=== PATIENT | male | born 1935 | race Caucasian/White ===

== ENCOUNTER → 2016-03-22 | Outpatient (CLI) | payer OTHER | LOC: BHFA 09:15 | PROVIDERS: ATTEND Internal Medicine Cardiovascular Disease | DX: I25.10 Atherosclerotic heart disease of native coronary artery without angina pectoris (principal); E78.2 Mixed hyperlipidemia; I49.3 Ventricular premature depolarization; I71.2 Thoracic aortic aneurysm, without rupture; I45.9 Conduction disorder, unspecified ==

== ENCOUNTER → 2016-03-28 | Outpatient (CLI) | payer OTHER | LOC: BHFA 14:00 | PROVIDERS: ATTEND Internal Medicine Cardiovascular Disease | DX: I25.10 Atherosclerotic heart disease of native coronary artery without angina pectoris (principal) ==

== ENCOUNTER → 2016-04-02 | Emergency (ER) | payer OTHER ==
[~2016-04-02] MED LIST: ACETAMINOPHEN 500 MG TAB ONE; ACETAMINOPHEN 500 MG TAB PO ONE; DEXAMETHASONE 10 MG/ML VIAL IVP ONE; HYDROmorphONE/DILAUDID 1 MG/ML SYR ONE; IBUPROFEN 200 MG TAB PO ONE; IBUPROFEN 600 MG TAB PO ONE; ONDANSETRON 4 MG/2 ML VIAL ONE
--- NOTE | 2016-04-02 06:27 | EDPHY ---
H & P Stated Complaint: sore throat, janis ear pain Time Seen by Provider: 04/02/16 05:41 HPI/ROS: HPI The patient presents with sore throat for the last 1d, he awoke with it this morning and it had become more severe, so he is here for evaluation. Throat pain is achy, constant, worse with swallowing, moderate in severity. It is associated with a fullness in his ears bilaterally. He does not have neck pain or stiffness. Denies any known sick contacts. Had a flu shot this year. REVIEW OF SYSTEMS Constitutional: No fever, no chills. Eyes: No discharge. ENT: No sore throat. Cardiovascular: No chest pain, no palpitations. Respiratory: No cough, no shortness of breath. Gastrointestinal: No abdominal pain, no vomiting. Genitourinary: No hematuria. Musculoskeletal: No back pain. Skin: No rashes. Neurological: No headache. PMHx: HTN, GERD PHYSICAL General Appearance: [Alert, no distress] Eyes: [Pupils equal and round no pallor or injection] ENT, Mouth: [Mucous membranes moist, pos pharynx is erythematous without exudate , no edema] Respiratory: [There are no retractions, lungs are clear to auscultation] Cardiovascular: [ Regular rate and rhythm ] Neurological: [ A&O, moves all extremities] Skin: [ Warm and dry, no rashes] Musculoskeletal: [Neck is supple with no lymphadenopathy ] Extremities: [symmetrical, full range of motion ] Psychiatric: [ Patient is oriented X 3, there is no agitation ] Source: Patient Exam Limitations: No limitations - Medical/Surgical History Hx Asthma: No Hx Chronic Respiratory Disease: No Hx Diabetes: No Hx Cardiac Disease: Yes Hx Renal Disease: No Hx Cirrhosis: No Hx Alcoholism: No Hx HIV/AIDS: No Hx Splenectomy or Spleen Trauma: No Other PMH: colon resection 2010 - Social History Smoking Status: Never smoked Drug Use: None Constitutional: Initial Vital Signs Temperature (C) 37.9 C 04/02/16 05:33 Heart Rate 70 04/02/16 05:33 Respiratory Rate 20 04/02/16 05:33 Blood Pressure 150/74 H 04/02/16 05:33 O2 Sat (%) 95 04/02/16 05:33 O2 Delivery Mode Room Air Allergies/Adverse Reactions: No Known Allergies Allergy (Unverified 04/02/16 05:33) Home Medications: Medication Instructions Recorded Gluc Sutherland/Chondro Sutherland A/Vit C/Mn 1 each PO DAILY 05/02/10 [Glucosamine 1,500 Complex Cp] OMEPRAZOLE 20 mg PO DAILY 05/02/10 RAMIPRIL 10 mg PO DAILY 05/02/10 SIMVASTATIN [Zocor] 40 mg PO DAILY 05/02/10 "Stool Softner" 07/07/10 Avadart 07/07/10 Medical Decision Making Differential Diagnosis: This is a relatively healthy 80 yo M who presents with 1 d history of sore throat. Here, he has a low grade temp, pos pharynx erythema, otherwise normal exam. Differential diagnosis includes strep pharyngitis, viral pharyngitis, less likely influenza given no cough or rhinorrhea. I doubt deep space neck infection given no neck pain with good range of motion of neck. Rapid strep was performed and was negative. I feel he likely has a viral pharyngitis and will treat him with tylenol, ibuprofen and decadron. - Data Points Medications Given: Discontinued Medications Acetaminophen (Tylenol) 1,000 mg PO EDNOW ONE Stop: 04/02/16 05:47 Last Admin: 04/02/16 05:58 Dose: 1,000 mg Dexamethasone (Decadron Injection) 10 mg IVP EDNOW ONE Stop: 04/02/16 05:51 Last Admin: 04/02/16 05:58 Dose: 10 mg Ibuprofen (Motrin) 800 mg PO EDNOW ONE Stop: 04/02/16 05:47 Last Admin: 04/02/16 05:58 Dose: 800 mg Departure - Departure Disposition: Home, Routine, Self-Care Clinical Impression: Pharyngitis Condition: Good Instructions: Pharyngitis (ED) Additional Instructions: Please make sure to drink plenty of fluids. You can take acetaminophen 650 mg and ibuprofen 400 mg every 6 hours as needed for pain or fever. Please return to the emergency room if you are worse in any way. Referrals: Tavo Mace MD [Primary Care Provider] - As per Instructions
[2016-04-02 06:45] VITALS: BP 108/66; PULSE 61; RESP 15; TEMP 98.3; O2SAT 91
== END | disposition home or self-care (01) ==
DX: J02.9 Acute pharyngitis, unspecified (principal); I10 Essential (primary) hypertension
CPT/HCPCS: 99283; J1170; J2405

== ENCOUNTER 2016-04-06 16:29 | Emergency (ER) | payer OTHER ==
[2016-04-06] MEDS ORDERED: HYDROmorphONE/DILAUDID 1 MG/ML SYR ONE ×3 (16:36→18:03)
--- NOTE | 2016-04-06 16:44 | EDPHY ---
H & P - Medical/Surgical History Hx Asthma: No Hx Chronic Respiratory Disease: No Hx Diabetes: No Hx Cardiac Disease: Yes Hx Renal Disease: No Hx Cirrhosis: No Hx Alcoholism: No Hx HIV/AIDS: No Hx Splenectomy or Spleen Trauma: No Other PMH: colon resection 2010 - Social History Smoking Status: Never smoked Time Seen by Provider: 04/06/16 16:40 Constitutional: Initial Vital Signs Temperature (C) 36.5 C 04/06/16 16:29 Heart Rate 77 04/06/16 16:29 Respiratory Rate 16 04/06/16 16:29 Blood Pressure 109/63 04/06/16 16:29 O2 Sat (%) 99 04/06/16 16:29 O2 Delivery Mode Room Air O2 (L/minute) 2 Allergies/Adverse Reactions: No Known Allergies Allergy (Unverified 04/02/16 05:33) Home Medications: Medication Instructions Recorded Gluc Sutherland/Chondro Sutherland A/Vit C/Mn 1 each PO DAILY 05/02/10 [Glucosamine 1,500 Complex Cp] OMEPRAZOLE 20 mg PO DAILY 05/02/10 RAMIPRIL 10 mg PO DAILY 05/02/10 SIMVASTATIN [Zocor] 40 mg PO DAILY 05/02/10 "Stool Softner" 07/07/10 Avadart 07/07/10 Bystolic 04/06/16 Medical Decision Making Procedures: I was asked by Dr. Jameson Salazar to repair right elbow laceration. Laceration repair. Verbal consent was obtained from the patient. The 2 cm laceration on the right elbow was anesthetized using 1% lidocaine with epinephrine. The wound was irrigated with saline, draped and explored to its base with a gloved finger. No tendon injury was identified. The wound was repaired with 4 0 Ethilon, 5 sutures. The wound repair was simple. The procedure was performed by myself. ( Alyssa Babin) ED Course/Re-evaluation: CHIEF COMPLAINT: Fall, hip pain. HISTORY OF PRESENT ILLNESS: This patient is a 80 year old male arriving by EMS following a fall this afternoon. He tells me that he is unsure why he fell but found himself on the floor, unable to get up due to right hip pain. He also reports a bilateral temporal headache exacerbated when moving his head. He is not on anticoagulants. He denies any significant medical history. REVIEW OF SYSTEMS: A 10 point review of systems was performed and is negative with the exception of the elements mentioned in the history of present illness. PHYSICAL EXAM: HR 77, BP 109/63, O2 Sat 93%, RR 16. Temp noted General Appearance: Alert, well hydrated, appropriate, and non-toxic appearing. Head: Atraumatic without scalp tenderness or obvious injury Eyes: Pupils equal, round, reactive to light and accommodation, EOMI, no trauma , no injection. Ears: Clear bilaterally, no perforation, normal landmarks Nose: Atraumatic, no rhinorrhea, clear. Throat: There is no erythema or exudates, no lesions, normal tonsils, mucus membranes moist. Neck: Supple, 2+ carotid upstroke, nontender, no lymphadenopathy. Respiratory: No retractions, no distress, no wheezes, and no accessory muscle use. Lungs are clear to auscultation bilaterally. Cardiovascular: Regular rate and rhythm, no murmurs, rubs, or gallops. Bilateral carotid, radial, dorsalis pedis, and posterior tibial pulses intact. Good capillary refill all extremities. Gastrointestinal: Abdomen is soft, nontender, non-distended, no masses, no rebound, no guarding, no peritoneal signs. Musculoskeletal: Short, externally rotated right lower extremity. Small elbow laceration. Neurological: Alert, appropriate, and interactive. The patient has normal DTRs and non-focal cranial nerves, motor, sensory, and cerebellar exam. Skin: No rashes, good turgor, no nodules on palpation. Past medical history: Hypertension. Normal heart cath in 2010. Followed by Dr. Naseem Sheikh. Social history: Lives independently. DIAGNOSTICS/PROCEDURES: EKG INTERPRETATION: The 12 lead EKG was interpreted by myself: Sinus rhythm, rate 76; inferior infarct, old; borderline R wave progression in the anterior leads. EKG is unchanged from previous. See hard copy and/or "tracemaster" electronic copy for interpretation. IMAGING: Study: CT of the head Indication: Possible syncope, pain, trauma Results: CT scan of the head was obtained. The results of the study are: non- acute. The study was read by the radiologist, Dr. Josh Cho. I viewed the images myself on the PACS system. Study: CT of the cervical spine Indication: Possible syncope, trauma Results: CT scan of the cervical spine was obtained. The results of the study are: The results of the study are: non-acute. The study was read by the radiologist, Dr. Josh Cho. I viewed the images myself on the PACS system. Study: X-ray of the right hip Indication: Pain, trauma Results: X-ray of the right hip was obtained. 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 The study was read by the radiologist, Dr. Josh Cho. I viewed the images myself on the PACS system. DIFFERENTIAL DIAGNOSIS: The differential diagnosis for the patient's fall included but was not limited to vasovagal syncope, arrhythmia, dehydration, cardiogenic causes, neurogenic causes, and blood loss. The differential diagnosis for the patient's hip pain included but was not limited to MEDICAL DECISION MAKING: This 80 year old male presents to the ED via EMS after falling this afternoon. He does not recall the reason for his fall but does report that he had difficulty getting up from the floor due to right hip pain. He presents with a laceration to his right elbow and indication of potential hip fracture based on the shortening and rotation of his right lower extremity. I will work the patient up for both the fall and the resulting injuries; will proceed with CT of the head and neck, X-ray of the hip, labs, and EKG. Elbow laceration will be repaired by the PA. EKG is unchanged from previous. Labs are unremarkable. CT of the head and neck is non-acute. 1800: X-ray of the hip is significant for a central acetabular fracture. I discussed these findings with the patient. Plan for consultation with the on- call orthopedic surgeon. 180: Consultation with Dr. Chucky Anderson, orthopedist, who recommends transfer to [facility] for pelvic trauma specialist. 181: Consultation with Dr. Crowell, surgeon at [facility], who accepts the transfer. Transport will be arrived via EMS. The patient reports that he has been NPO since this 930 morning. (Jameson Salazar ) - Data Points Laboratory Results: Laboratory Results 04/06/16 16:35 04/06/16 16:35 04/06/16 04/06/16 16:35 15:35 WBC 9.08 10^3/uL (3.80-9.50) RBC 5.06 10^6/uL (4.40-6.38) Hgb 13.5 L g/dL (13.7-17.5) Hct 40.9 % (40.0-51.0) MCV 80.8 L fL (81.5-99.8) MCH 26.7 L pg (27.9-34.1) MCHC 33.0 g/dL (32.4-36.7) RDW 14.0 % (11.5-15.2) Plt Count 180 10^3/uL (150-400) MPV 9.5 fL (8.7-11.7) Neut % (Auto) 81.6 H % (39.3-74.2) Lymph % (Auto) 11.5 L % (15.0-45.0) [place] % (Auto) 4.8 % (4.5-13.0) Eos % (Auto) 0.8 % (0.6-7.6) Baso % (Auto) 0.3 % (0.3-1.7) Nucleat RBC Rel Count 0.0 % (0.0-0.2) Absolute Neuts (auto) 7.41 H 10^3/uL (1.70-6.50) Absolute Lymphs (auto) 1.04 10^3/uL (1.00-3.00) Absolute Monos (auto) 0.44 10^3/uL (0.30-0.80) Absolute Eos (auto) 0.07 10^3/uL (0.03-0.40) Absolute Basos (auto) 0.03 10^3/uL (0.02-0.10) Absolute Nucleated RBC 0.00 10^3/uL (0-0.01) Immature Gran % 1.0 % (0.0-1.1) Immature Gran # 0.09 10^3/uL (0.00-0.10) PT 14.4 SEC (12.0-15.0) INR 1.13 (0.83-1.16) APTT 31.1 SEC (23.0-38.0) Sodium 139 mEq/L (134-144) Potassium 3.9 mEq/L (3.5-5.2) Chloride 107 mEq/L (97-110) Carbon Dioxide 22 mEq/l (22-31) Anion Gap 10 mEq/L (8-16) BUN 17 mg/dL (7-23) Creatinine 1.0 mg/dL (0.7-1.3) Estimated GFR > 60 Glucose 96 mg/dL (70-100) Calcium 8.8 mg/dL (8.5-10.4) Medications Given: Discontinued Medications Hydromorphone HCl (Dilaudid) 0.5 mg IVP EDNOW ONE Stop: 04/06/16 16:49 Last Admin: 04/06/16 17:00 Dose: 0.5 mg Hydromorphone HCl (Dilaudid) 0.5 mg IVP EDNOW ONE Stop: 04/06/16 18:06 Last Admin: 04/06/16 18:05 Dose: 0.5 mg Ondansetron HCl (Zofran) 4 mg IVP EDNOW ONE Stop: 04/06/16 17:01 Last Admin: 04/06/16 17:00 Dose: 4 mg Departure - Departure Disposition: [facility] Clinical Impression: Acetabular fracture Condition: Fair Referrals: NONE *PRIMARY CARE P,. [Primary Care Provider] - As per Instructions Report Scribed for: Jameson Salazar Report Scribed by: Dee Ray Date of Report: 04/06/16 Time of Report: 16:45
[2016-04-06] MEDS ORDERED: HYDROmorphONE/DILAUDID 1 MG/ML SYR IVP ONE ×3 (16:48→19:10)
--- NOTE | 2016-04-06 16:52 | CPEKG ---
Heart Rate: 76 RR Interval: 789 P-R Interval: 212 QRSD Interval: 104 QT Interval: 408 QTC Interval: 459 P [place]: 20 QRS [place]: -69 T Wave [place]: 36 EKG Severity - ABNORMAL ECG - EKG Impression: SINUS RHYTHM EKG Impression: INFERIOR INFARCT, OLD EKG Impression: BORDERLINE R WAVE PROGRESSION, ANTERIOR LEADS Electronically Signed By: Jameson Salazar 06-Apr-2016 23:03:09
[2016-04-06 16:53] LABS: ABSOLUTE IMMATURE GRANULOCYTES 0.09 10^3/uL (0.00-0.10); ADD DIFF? NO; ADD MORPH? NO; ADD SCAN? NO; ATYPICAL LYMPHOCYTE FLAG 20 (0-99); FRAGMENT RBC FLAG 0 (0-99); HEMATOCRIT 40.9 % (40.0-51.0); HEMOGLOBIN 13.5 g/dL (13.7-17.5); LEFT SHIFT FLG 30 (0-99); LIPEMIA HEMOLYSIS FLAG 80 (0-99); MEAN CELL HEMOGLOBIN 26.7 pg (27.9-34.1); MEAN CELL VOLUME 80.8 fL (81.5-99.8); MEAN PLATELET VOLUME 9.5 fL (8.7-11.7); PLATELET CLUMPS FLAG 0 (0-99); PLATELET COUNT 180 10^3/uL (150-400); RED BLOOD CELL COUNT 5.06 10^6/uL (4.40-6.38)
[2016-04-06] MEDS ORDERED: ONDANSETRON 4 MG/2 ML VIAL ONE (16:58)
[2016-04-06] MEDS ORDERED: ONDANSETRON 4 MG/2 ML VIAL IVP ONE (17:00)
[2016-04-06 17:13] LABS: INR 1.13 (0.83-1.16); PROTIME(PATIENT) 14.4 SEC (12.0-15.0)
[2016-04-06 17:13] LABS: ANION GAP 10 mEq/L (8-16); CALCIUM 8.8 mg/dL (8.5-10.4); CARBON DIOXIDE 22 mEq/l (22-31); CHLORIDE 107 mEq/L (97-110); GLOMERULAR FILTRATION RATE > 60; GLUCOSE 96 mg/dL (70-100); POTASSIUM 3.9 mEq/L (3.5-5.2); SODIUM 139 mEq/L (134-144)
[2016-04-06 17:14] LABS: APTT 31.1 SEC (23.0-38.0)
--- NOTE | 2016-04-06 17:41 | CT ---
1. CT Head Without Contrast, 5:06 p.m. History: Trauma, fall. Technique: Noncontrast images through the head. Soft tissue and bone window evaluation is performed. Dose reduction techniques were utilized. Findings: There is age-appropriate moderate cerebral atrophy. There is no evidence for hemorrhage, ma ss lesion, acute infarction, intracranial edema, hydrocephalus or abnormal intracranial parenchymal c alcification. Is atherosclerotic calcification of both distal vertebral and internal carotid arteries . No subarachnoid blood is identified. There is no midline shift. The ambient cistern is patent. Bone window evaluation reveals normally aerated paranasal and mastoid sinuses. There is no evidence of fr acture or pneumocephalus. There is a small amount of fluid in the posterior right maxillary sinus. No facial bone fracture is identified. Impression: Head CT within normal limits. 2. CT Cervical Spine Without Contrast, 5:06 p.m. History: Trauma. Fall. Technique: Multislice helical CT through the cervical spine without contrast from the skull base to T 1. Soft tissue and bone evaluation is performed. Sagittal and coronal reconstructions are obtained an d reviewed. Dose reduction techniques were utilized. Findings: Cervical alignment is anatomic. No fracture or dislocation is identified. The relationship between skull base and C1 is normal. The C1-C2 articulation is normally aligned. 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 The odontoid proce ss is intact. There is degenerative disk space narrowing with old erosive change between C3 and T1. There are old corticated spinous process fractures of C6 and C7. The cervical thoracic junction is no rmally aligned. There is degenerative facet disease on the left between C2 and C5 and on the right be tween C3 and T1. Soft tissue window evaluation does not show evidence of epidural or prevertebral hem atoma. Impression: No acute posttraumatic abnormality identified. Results called to Dr. Salazar at at 5:37 p.m.. Final results are concordant with the initial interpretation. General information for patients regarding this examination can be found at [email or web address]. If you have questions or comments about this report, please contact me at [phone] (hospital) or [phone] (cell).
--- NOTE | 2016-04-06 17:54 | DX ---
1. Chest, AP supine History: Pelvic fracture, fall, altered mental status, pain Findings: Lungs are clear, without infiltrate or consolidation. Heart size is normal. There is no chon nopathy or mass lesion. There is no pleural effusion or pneumothorax. There is a displaced anterior l eft fourth rib fracture. There may be acute anterior left fifth, sixth and seventh rib fractures as w ell. There is a mild thoracic scoliosis concave to the left. EKG leads overlie the chest. Impression: Possibly up to 4 left rib fractures without pneumothorax, pleural fluid or pulmonary cont usion. 2. Right Hip , 3 views History: Pain post trauma. Findings: The femoral head is well rounded but centrally displaced into the pelvis consistent with pr otrusio. The medial right acetabular wall is displaced centrally into the pelvis. The SI joints ,pub ic symphysis and left hip remain normally aligned.. 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
[2016-04-06 19:31] VITALS: BP 118/73; PULSE 81; RESP 16; TEMP 98.1; O2SAT 94
== END 2016-04-06 19:40 | disposition short-term general hospital (02) ==
LOC: EDUNIT#
PROC: 0HQDXZZ Repair Right Lower Arm Skin, External Approach (ICD-10-PCS; principal; 2016-04-06)
DX: S51.011A Laceration without foreign body of right elbow, initial encounter (principal); S32.401A Unspecified fracture of right acetabulum, initial encounter for closed fracture; I10 Essential (primary) hypertension; W18.39XA Other fall on same level, initial encounter
CPT/HCPCS: 12001; 70450; 71010; 72125; 73502; 93005; 96374; 96375; 96376; 99285; J1170; J2405

== ENCOUNTER → 2016-06-21 | Outpatient (CLI) | payer OTHER | LOC: BHFA 09:30 | PROVIDERS: ATTEND Internal Medicine Cardiovascular Disease | DX: I25.10 Atherosclerotic heart disease of native coronary artery without angina pectoris (principal) | CPT/HCPCS: 78452; 93017; A9500; J2785 ==